=== PATIENT | male | born 1990 | race Caucasian/White ===

== ENCOUNTER 2019-03-09 08:18 | Emergency (ER) | payer BC ==
[~2019-03-09] VITALS: Ht 162.6 cm; Wt 79.4 kg
[2019-03-09 08:33] VITALS: BP 130/66; Ht 162.6 cm; Wt 79.4 kg
== END 2019-03-09 09:25 | disposition home or self-care (01) ==
LOC: ED 08:18
DX: K64.4 Residual hemorrhoidal skin tags (principal)